=== PATIENT | female | born 1975 | race Caucasian/White ===

== ENCOUNTER 2016-09-26 21:44 | Emergency (ER) | payer OTHER ==
[~2016-09-26] VITALS: Ht 165.1 cm; Wt 104.3 kg
[~2016-09-26 21:44] MED LIST: MOTRIN800 MG PO
[2016-09-26 21:55] VITALS: BP 139/83
--- NOTE | 2016-09-26 22:19 | ED INFLUENZA/URI COMPLAINT ---
History of Present Illness General Chief Complaint: Upper Respiratory Sx/Fever Stated Complaint: FEVER 102.9, CHILLS,COUGHING Source: patient, family, old records Exam Limitations: language barrier Vital Signs & Intake/Output Vital Signs & Intake/Output Vital Signs Date Time Temp Pulse Resp B/P Pulse O2 O2 Flow FiO2 Ox Delivery Rate 09/26 2155 99.0 108 18 139/83 99 Room Air Allergies Coded Allergies: NO KNOWN ALLERGIES (03/28/12) Reconcile Medications Ibuprofen (Motrin) 800 MG TAB 1 TAB PO 4 TIMES/DAY PRN PAIN Oseltamivir Phosphate (Tamiflu) 75 MG CAPSULE 1 CAP PO BID flu Triage Note: PT TO ED C/O TEMP AT HOME 102.9, CHILLS, BODY ACHES, STOMACH PAIN, COUGH, HEADACHE. ALL FOR 2 DAYS, EXCEPT 4 DAYS FOR STOMACH PAIN. WENT TO PCP FOR STOMACH PAIN, IS TAKING FLAGYL. Triage Nurses Notes Reviewed? yes Onset: Abrupt Duration: day(s): (2), constant Timing: recent history Severity: moderate Severity Numbers: 5 No Modifying Factors: none Associated Symptoms: earache, fever/chills, muscle aches, nasal congestion, nasal drainage, shortness of breath, sore throat : No Patient currently breastfeeds: No HPI: 41-year-old female presents to emergency room complaining of a nonproductive cough sore throat bilateral earache, body aches and fever as high as 102.9 for the past 2 days the patient is been taking Motrin with improvement in her fevers. She denies any sick contacts at home with similar symptoms no vomiting or diarrhea. The patient was recently started on Flagyl for diarrhea that has since resolved. No abdominal pain chest pain shortness of breath. She denies any rashes or skin no modifying factors or associated symptoms otherwise. Past History Travel History Traveled to [place] past 21 day No Medical History Any Pertinent Medical History? see below for history Cardiovascular: hypertension, hyperlipidemia Endocrine: diabetes, hypothyroidism Tetanus Vaccine: 03/22/12 Surgical History Surgical History: none Psychosocial History What is your primary language Slovenian Tobacco Use: Never used ETOH Use: denies use Illicit Drug Use: denies illicit drug use Family History Hx Contributory? No Review of Systems Review of Systems Constitutional: Reports: see HPI. All Other Systems: Reviewed and Negative Comments Review of systems: See HPI, All other systems negative. Constitutional, no chills no fever, no malaise HEENT: No visual changes sore throat congestion, ear pain Cardiovascular: No chest pain , no palpitation Skin, no jaundice no rashes, no change in skin Respiratory: No dyspnea cough no sputum GI: No nausea no vomiting, no diarrhea, no bloating/constipation : No dysuria No hematuria Muscle skeletal: No joint pain, no joint swelling, no back pain, no neck pain, Neurologic: No numbness no headache Psych: No stress Heme/endocrine: No bruising no bleeding Immunology: No lymphadenopathy Physical Exam Physical Exam General Appearance: well developed/nourished, no apparent distress, alert, awake Ears, Nose, Throat: moist mucous membrane, hearing grossly normal, Tympanic normal, pharynx normal, nasal congestion Comments: Well-developed well-nourished patient in no apparent distress. Head/Face: Atraumatic, no maxillary/frontal sinus tenderness, no facial swelling Eyes: PERRL, EOMI, no conjunctival injection. No nystagmus Ear:External auditory canal and Tympanic membranes clear, no erythema, no FB. Nose: atraumatic.Normal inspection: No bleeding Throat: Moist mucous membranes.Pharynx normal. No pharyngeal erythema/exudate seen. No stridor/drooling or assymetry. No swelling or edema. Neck: Supple, no lymphadenopathy, FROM Back: FROM, Nontender Cardiovascular: Regular rate and rhythms no murmurs rubs or gallops, Respiratory: Chest nontender.There were no bony deformities, no asymmetry. No respiratory distress. Patient speaking in full complete sentences. Breath sounds clear to auscultation bilaterally: NO W/R/R Abdomen: Soft nontender no rebound or guarding Extremities: full range of motion Neuro: Alert and oriented x3 Skin: Warm & dry;No appreciable rash on exposed skin Psych: Mood affect normal, normal memory normal judgment. Core Measures Severe Sepsis Present: No Septic Shock Present: No Progress Differential Diagnosis: influenza, otitis, pneumonia, pharyngitis, sinusitis Plan of Care: Orders Procedure Date/time Status RAPID VIRAL INFLUENZA A 09/26 2151 Complete Discussed with patient her flu swab results need for Tylenol Motrin prescription for Tamiflu was called and advised close follow-up with her primary care physician and return with any concerns answered all of her questions they feel comfortable with plan (HANKEARA LIU) Initial ED EKG: none Departure Departure Time of Disposition: 2224 Disposition: HOME OR SELF CARE Condition: Stable Clinical Impression Primary Impression: Influenza Referrals: JENNY HORVATH,LAURA (PCP/Family) Additional Instructions: Tamiflu as directed. Tylenol or Motrin every 4-6 hours drink plenty of fluids follow-up with her primary care physician this week return with any concerns this prescription was sent to your pharmacy Departure Forms: Customer Survey General Discharge Information Prescriptions: Current Visit Scripts Oseltamivir Phosphate (Tamiflu) 1 CAP PO BID #10 CAP
[2016-09-26] MEDS ORDERED: TAMIFLU75 M1 PO (22:26)
== END 2016-09-26 22:34 ==
LOC: ERH 21:44
DX: J11.1 Influenza due to unidentified influenza virus with other respiratory manifestations (principal)
CPT/HCPCS: 87804; 87804-59